=== PATIENT | male | born 1975 | race Caucasian/White ===

== ENCOUNTER 2019-06-14 12:29 | Emergency (ER) | payer MEDICAID ==
[~2019-06-14] VITALS: Ht 180.3 cm; Wt 86.5 kg
[2019-06-14 12:51] VITALS: BP 129/88
[2019-06-14] MEDS ORDERED: SERT100T32 PO (13:29)
[2019-06-14] MEDS ORDERED: LAMO100T63 PO (13:29)
[2019-06-14] MEDS ORDERED: BUPR300T49 PO (13:29)
--- NOTE | 2019-06-14 13:32 | NUR ---
HERE FOR MED REFILL, UPDATED MED REC.
== END 2019-06-14 14:16 | disposition home or self-care (01) ==
LOC: ED 14:00
DX: F32.9 Major depressive disorder, single episode, unspecified (principal); F41.9 Anxiety disorder, unspecified; Z76.0 Encounter for issue of repeat prescription; F17.200 Nicotine dependence, unspecified, uncomplicated; Z88.5 Allergy status to narcotic agent
CPT/HCPCS: 99283

== ENCOUNTER 2020-06-30 13:01 | Emergency (ER) | payer MEDICAID ==
[~2020-06-30] VITALS: Ht 180.3 cm; Wt 87.6 kg
[~2020-06-30 13:01] MED LIST: BUPR300T49 PO; LAMO100T63 PO; SERT100T32 PO
[2020-06-30 13:03] VITALS: BP 136/77
== END 2020-06-30 14:22 | disposition home or self-care (01) ==
LOC: ED 14:12
DX: S52.502A Unspecified fracture of the lower end of left radius, initial encounter for closed fracture (principal); Y04.0XXA Assault by unarmed brawl or fight, initial encounter; Y93.89 Activity, other specified; Y92.89 Other specified places as the place of occurrence of the external cause; Y99.8 Other external cause status
CPT/HCPCS: 29125; 99283